=== PATIENT | female | born 1980 | race Caucasian/White ===

== ENCOUNTER 2017-02-20 18:34 | Emergency (ER) | payer MEDICAID ==
[~2017-02-20] VITALS: Ht 165.1 cm; Wt 90.7 kg
[~2017-02-20 18:34] MED LIST: CIPRO 500MG TA500 MG PO; FERROUS SULFAT325 M2 PO; LABETALOL 100M100 MG PO; LEVAQUIN 750 M750 MG PO; LISINOPRIL2.5 MG NG; LISINOPRIL20 MG PO; MEDROL 4MG. DOSE4 MG PO; MOTRIN 600MG.600 MG PO; PERCOCET 650 MG1 TAB PO; PRENATAL PLUS1 TA1 PO; PYRIDIUM 200MG200 MG PO; SERTRALINE 50MG50 MG PO; TESSALON PERLE100 MG PO
[2017-02-20] MEDS ORDERED: TORADOL10 MG PO (18:46)
--- NOTE | 2017-02-20 18:47 | Emergency Room Report ---
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 Clinical Suspician of Infection? Mental Status: Sepsis Risk: Have you (or family members/close friends) recently traveled outside the [place]? If Yes, where/when: Have you had exposure to infectious disease within the past month? TB? Other? Specify: 36 years old white female with prior ankle sprains. 45 minuted ago, she rolled her right ankle that with the result of a loud and pain across the top part of the r foot. No deformity but she is unable to walk on it. good color and cap refill. Source patient, RN notes reviewed, family Exam Limitations no limitations ALLERGIES Coded Allergies: fluoxetine (From [employer]) (Mild, 10/15/15) Home Medications Active Scripts IBUPROFEN (Motrin 600MG) 600 MG PO Q6HP PRN PAIN #20 TAB Prov: 09/10/15 Reported Medications Lisinopril 20 MG PO DAILY #30 Sertraline Hcl (Sertraline 50MG) 25 MG PO DAILY #30 History Medical History General CAD? No Angina: No [place]: No Hypertension? Yes Hyperlipidemia? No CHF? No DVT? No PE? No COPD? No Asthma? Yes Anemia? No GERD? No Gastric ulcers? No GI Bleed? No Hernia? No Thyroid Problems? No Hypothyroidism? No CVA? No Seizures? No Diabetes? No Renal Insuffiency? No End Stage Renal Disease? No UTI? Yes Stones? No GB Disease: No Nephritic Syndrome? No Asplenia? No Hepatitis? No Sickle Cell Disease? No Arthritis? No Migraines? No Cataracts? No Glaucoma? No MRSA? No HIV? No TB? No Anxiety? Yes Depression? Yes Cancer? No Immunization Hx DT/Tetanus > 10 YRS Flu [id number] Pneumonia REFUSES Surgical Hx Previous Surgery?Y D AND C 2005 2006 LEFT OOPHORECTOMY 2009 2010 [facility]. TUBAL 2011 Family History Family Hx Diabetes Yes CAD Yes Hypertension Yes Hyperlipidemia Yes Cancer Yes TB No Social History Smoking Hx Packs/day < 1 Pack Alcohol Alcohol: No Review of Systems All Other Systems Reviewed and Negative Constitutional no symptoms reported Eyes no symptoms reported ENT no symptoms reported. Respiratory no symptoms reported Cardiovascular no symptoms reported Gastrointestinal no symptoms reported Genitourinary no symptoms reported. Musculoskeletal see HPI, joint pain (r ankle ) Skin no symptoms reported Psychiatric/Neurological no symptoms reported Physical Exam Vital Signs Vital Signs Date Time Temp Pulse Resp B/P Pulse O2 O2 Flow FiO2 Ox Delivery Rate 02/21 1848 18 02/20 184 97.3 72 18 129/93 97 - WBC >12,000 or <4,000 or 10% bands? 2 or more SIRS Criteria Met? B/P:129/93 MAP:105 Creatinine >2.0? UA output<0.5ml/kg/hr for 2 hrs? Platelet count >100,000? Lactate >2.0mmol/1? INR >1.2 or PTT > than 60 sec? Evidence of Organ Dysfunction? Provider documented clinical suspician of infection? N Sepsis Criteria Count: 0 Sepsis Risk: Low Sepsis Risk General Appearance normal appearance, WD/WN Eye Exam - bilateral eye normal exam, bilateral eye PERRL, bilateral eye EOMI Ear, Nose, Throat hearing grossly normal, normal ENT inspection Neck normal inspection, non-tender, supple, full range of motion Respiratory Status Yes: trachea midline, chest symmetrical, non tender chest. No: respiratory distress. Lung Sounds bilateral: normal breath sounds, lungs clear. Cardiovascular normal exam, regular rate/rhythm, no peripheral edema, no gallop, no JVD, no murmur, no rub, normal peripheral pulses Peripheral Pulses Pulses normal Yes Gastrointestinal normal bowel sounds, normal exam, non tender, soft, no organomegaly Back normal inspection, no CVA tenderness, no vertebral tenderness Extremities non-tender, normal range of motion, normal inspection, noted numbness over the medial and lateral malleolus, no tenderness over the heel, no joint swelling. 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 No Results/Orders Current Medication Orders Sig/Arjun Start time Last Medication Dose Route Stop Time Status Admin Ketorolac 60 MG ONCE ONE 02/20 1845 DC 02/20 Tromethamine IM 02/20 Ketorolac 0 .STK-MED ONE 09/14 1845 DC Tromethamine .ROUTE Orders Procedure Date/time Status ANKLE-RT-3 VIEWS 02/21 1840 Active XRAY/CT/US XRAY/CT/US XRAY ankle, FOOT XR interpretation by reviewed by me Xray Results NO FRACTURE Departure Departure Time of Disposition 1844 Disposition DC Home or Self Care(routine) Clinical Impression Primary Impression: Right ankle strain Condition STABLE Referrals ASHLEE OJNES (Family) Additional Instructions 1- rest x 2 days. 2- ice 3- elevate. 4- ankle stirrups and crutches 5- toradol. 6- f/u with Dr Clemens. 7- FOLLOW UP WITH FINAL X RAY REPORT WITH PCP. Discharge Counseling Counseled pt/family regarding diagnosis, test results, medications/RX, home care, follow up needs Prescriptions Current Visit Scripts KETOROLAC TROMETHAMINE (TORADOL 10MG) 10 MG PO Q12HP #10 TAB ED Critical Care Critical Care No If Critical Care minutes are documented, the time involved in the performance of seperately reportable procedures was not counted toward critical care time documented. I directly delivered medical care to this critically ill and/or injured patient. Timely evaluation and treatment was necessary to address the significant organ system(s) dysfunction present in this patient. at 1937
--- NOTE | 2017-02-20 18:47 | Emergency Room Report ---
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 Clinical Suspician of Infection? Mental Status: Sepsis Risk: Have you (or family members/close friends) recently traveled outside the [place]? If Yes, where/when: Have you had exposure to infectious disease within the past month? TB? Other? Specify: 36 years old white female with prior ankle sprains. 45 minuted ago, she rolled her right ankle that with the result of a loud and pain across the top part of the r foot. No deformity but she is unable to walk on it. good color and cap refill. Source patient, RN notes reviewed, family Exam Limitations no limitations ALLERGIES Coded Allergies: fluoxetine (From [employer]) (Mild, 10/15/15) Home Medications Active Scripts IBUPROFEN (Motrin 600MG) 600 MG PO Q6HP PRN PAIN #20 TAB Prov: 09/10/15 Reported Medications Lisinopril 20 MG PO DAILY #30 Sertraline Hcl (Sertraline 50MG) 25 MG PO DAILY #30 History Medical History General CAD? No Angina: No [place]: No Hypertension? Yes Hyperlipidemia? No CHF? No DVT? No PE? No COPD? No Asthma? Yes Anemia? No GERD? No Gastric ulcers? No GI Bleed? No Hernia? No Thyroid Problems? No Hypothyroidism? No CVA? No Seizures? No Diabetes? No Renal Insuffiency? No End Stage Renal Disease? No UTI? Yes Stones? No GB Disease: No Nephritic Syndrome? No Asplenia? No Hepatitis? No Sickle Cell Disease? No Arthritis? No Migraines? No Cataracts? No Glaucoma? No MRSA? No HIV? No TB? No Anxiety? Yes Depression? Yes Cancer? No Immunization Hx DT/Tetanus > 10 YRS Flu [id number] Pneumonia REFUSES Surgical Hx Previous Surgery?Y D AND C 2005 2006 LEFT OOPHORECTOMY 2009 2010 [facility]. TUBAL 2011 Family History Family Hx Diabetes Yes CAD Yes Hypertension Yes Hyperlipidemia Yes Cancer Yes TB No Social History Smoking Hx Packs/day < 1 Pack Alcohol Alcohol: No Review of Systems All Other Systems Reviewed and Negative Constitutional no symptoms reported Eyes no symptoms reported ENT no symptoms reported. Respiratory no symptoms reported Cardiovascular no symptoms reported Gastrointestinal no symptoms reported Genitourinary no symptoms reported. Musculoskeletal see HPI, joint pain (r ankle ) Skin no symptoms reported Psychiatric/Neurological no symptoms reported Physical Exam Vital Signs Vital Signs Date Time Temp Pulse Resp B/P Pulse O2 O2 Flow FiO2 Ox Delivery Rate 02/21 1848 18 02/20 184 97.3 72 18 129/93 97 - WBC >12,000 or <4,000 or 10% bands? 2 or more SIRS Criteria Met? B/P:129/93 MAP:105 Creatinine >2.0? UA output<0.5ml/kg/hr for 2 hrs? Platelet count >100,000? Lactate >2.0mmol/1? INR >1.2 or PTT > than 60 sec? Evidence of Organ Dysfunction? Provider documented clinical suspician of infection? N Sepsis Criteria Count: 0 Sepsis Risk: Low Sepsis Risk General Appearance normal appearance, WD/WN Eye Exam - bilateral eye normal exam, bilateral eye PERRL, bilateral eye EOMI Ear, Nose, Throat hearing grossly normal, normal ENT inspection Neck normal inspection, non-tender, supple, full range of motion Respiratory Status Yes: trachea midline, chest symmetrical, non tender chest. No: respiratory distress. Lung Sounds bilateral: normal breath sounds, lungs clear. Cardiovascular normal exam, regular rate/rhythm, no peripheral edema, no gallop, no JVD, no murmur, no rub, normal peripheral pulses Peripheral Pulses Pulses normal Yes Gastrointestinal normal bowel sounds, normal exam, non tender, soft, no organomegaly Back normal inspection, no CVA tenderness, no vertebral tenderness Extremities non-tender, normal range of motion, normal inspection, noted numbness over the medial and lateral malleolus, no tenderness over the heel, no joint swelling. 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 No Results/Orders Current Medication Orders Sig/Arjun Start time Last Medication Dose Route Stop Time Status Admin Ketorolac 60 MG ONCE ONE 02/20 1845 DC 02/20 Tromethamine IM 02/20 Ketorolac 0 .STK-MED ONE 09/14 1845 DC Tromethamine .ROUTE Orders Procedure Date/time Status ANKLE-RT-3 VIEWS 02/21 1840 Active XRAY/CT/US XRAY/CT/US XRAY ankle, FOOT XR interpretation by reviewed by me Xray Results NO FRACTURE Departure Departure Time of Disposition 1844 Disposition DC Home or Self Care(routine) Clinical Impression Primary Impression: Right ankle strain Condition STABLE Referrals ASHLEE JONES (Family) Additional Instructions 1- rest x 2 days. 2- ice 3- elevate. 4- ankle stirrups and crutches 5- toradol. 6- f/u with Dr Clemens. 7- FOLLOW UP WITH FINAL X RAY REPORT WITH PCP. Discharge Counseling Counseled pt/family regarding diagnosis, test results, medications/RX, home care, follow up needs Prescriptions Current Visit Scripts KETOROLAC TROMETHAMINE (TORADOL 10MG) 10 MG PO Q12HP #10 TAB ED Critical Care Critical Care No If Critical Care minutes are documented, the time involved in the performance of seperately reportable procedures was not counted toward critical care time documented. I directly delivered medical care to this critically ill and/or injured patient. Timely evaluation and treatment was necessary to address the significant organ system(s) dysfunction present in this patient. at 1937
--- NOTE | 2017-02-20 19:36 | RADIOLOGY REPORT PS360 ---
FOOT-RT-3 VIEWS HISTORY: Pain following injury rolled her ankle ORDERING PHYSICIAN: Teressa Peck MD PATIENT AGE: 36 years COMPARISON: None FINDINGS: No fracture or dislocation. No lytic or blastic change. There is normal mineralization.. The joint spaces are well-preserved. No significant degenerative/arthritic changes. No erosive changes evident. IMPRESSION: Negative, no acute finding
--- NOTE | 2017-02-20 19:36 | RADIOLOGY REPORT PS360 ---
ANKLE-RT-3 VIEWS HISTORY: Pain following injury twisted her ankle ORDERING PHYSICIAN: Teressa Peck MD PATIENT AGE: 36 years COMPARISON: None FINDINGS: No fracture or dislocation. No lytic or blastic change. There is normal mineralization.. The joint spaces are well-preserved. No significant degenerative/arthritic changes. No erosive changes evident. There is a small bone island basilar malleolus. IMPRESSION: Negative, no acute finding
[2017-02-20 21:08] VITALS: BP 129/93
== END 2017-02-20 20:00 | disposition home or self-care (01) ==
LOC: ER 18:34
DX: S93.401A Sprain of unspecified ligament of right ankle, initial encounter (principal); X50.9XXA Other and unspecified overexertion or strenuous movements or postures, initial encounter; Y92.9 Unspecified place or not applicable; Z79.899 Other long term (current) drug therapy; I10 Essential (primary) hypertension; J45.909 Unspecified asthma, uncomplicated